=== PATIENT | female | born 1995 | race Caucasian/White ===

== ENCOUNTER 2017-02-06 10:05 | Emergency (ER) | payer BC ==
[2017-02-06 11:14] VITALS: BP 159/86
--- NOTE | 2017-02-06 11:43 | UC ---
Dental HPI - HPI Summary HPI Summary: complaint of dental pain that started approx 1 week ago yesterday at 5PM pain worsened left lower dental and jaw pain noticed an abscess which she draining last night with pressure last week had some bridge work completed -has appt next week took some tylenol 3 without relief didn't finish her augmentin that she was put on for dental work - History of Current Complaint Chief Complaint: UCDentalProblem Stated Complaint: DENTAL PAIN Time Seen by Provider: 02/06/17 11:30 Hx Obtained From: Patient Hx Last Menstrual Period: 01/08/17 - Allergies/Home Medications Allergies/Adverse Reactions: Allergies Allergy/AdvReac Type Severity Reaction Status Date / Time No Known Allergies Allergy Verified 02/06/17 11:13 PMH/Surg Hx/FS Hx/Imm Hx Previously Healthy: Yes Endocrine History Of: Denies: Diabetes, Thyroid Disease Cardiovascular History Of: Denies: Cardiac Disorders, Hypertension Respiratory History Of: Denies: COPD, Asthma GI/ History Of: Denies: Ulcer - Surgical History Surgical History: Yes Surgery Procedure, Year, and Place: CYST ON STERNUM - 2 SURGERIES. DENTAL WORK - Family History Known Family History: Positive: None, Unknown, Hypertension - Social History Occupation: Employed Full-time Lives: With Family Alcohol Use: Rare Substance Use Type: None Smoking Status (MU): Never Smoked Tobacco - Immunization History Most Recent Influenza Vaccination: 2014 Most Recent Tetanus Shot: 10/2015 Review of Systems Constitutional: Negative Skin: Negative Eyes: Negative ENT: Dental Pain Respiratory: Negative Cardiovascular: Negative Gastrointestinal: Negative Genitourinary: Negative Motor: Negative Neurovascular: Negative Musculoskeletal: Negative Neurological: Negative Psychological: Negative All Other Systems Reviewed And Are Negative: Yes Physical Exam Triage Information Reviewed: Yes Appearance: Well-Nourished, Pain Distress, Obese Vital Signs: Initial Vital Signs Temp 99.1 F 02/06/17 11:08 Pulse 69 02/06/17 11:08 Resp 16 02/06/17 11:08 BP 159/86 02/06/17 11:08 Pulse Ox 97 02/06/17 11:08 Vital Signs Reviewed: Yes Eyes: Positive: Conjunctiva Clear ENT: Positive: Pharynx normal, TMs normal Dental: Positive: Dental Fracture @ - 18, gum surrounding tooth edea nad erythema Neck: Positive: No Lymphadenopathy Respiratory: Positive: Lungs clear, Normal breath sounds, No respiratory distress Cardiovascular: Positive: RRR, No Murmur, Pulses Normal Abdomen Description: Positive: Nontender, Soft Bowel Sounds: Positive: Present Musculoskeletal Exam: Normal Neurological Exam: Normal Psychological Exam: Normal Skin Exam: Normal Dental Complaint Course/Dx - Course Course Of Treatment: exam completed. fractured tooth and surrounding gum appears infected. will start clindamycin becuase she stoppe dtaking her prescribes augmentin 2 days ago. limited amount of percocet given until antibiotic starts to fight infection. [facility] acseesed reference # [id number] - Differential Dx/Diagnosis Differential Diagnosis/Dx: Dental Abscess, Fractured Tooth Provider Diagnoses: dental abscess. elevated blood pressure Discharge - Discharge Plan Condition: Stable Disposition: HOME Prescriptions: Clindamycin Cap(NF) [Cleocin 300 mg Cap(NF)] 300 mg PO TID #30 cap oxyCODONE/Acetamin 5/325 MG* [Percocet 5/325 TAB*] 1 tab PO Q4H PRN #12 tab MDD 6 PRN Reason: Pain - Uncontrolled Patient Education Materials: Dental Abscess (ED) Forms: *Work Release Referrals: No Primary Care Phys,NOPCP [Primary Care Provider] - [facility] [facility] [Outside] Additional Instructions: DENTAL ABSCESS What is a Dental Abscess? A dental abscess is an infection around the root of a tooth or in the gums or jawbone. The infection causes pus to collect, and a lump can appear. Dental abscesses often get their start when bacteria invade a decayed tooth; the decay may then travel to the gums or jawbone. Decay can also begin in the mouth when teeth are not brushed or flossed properly. Symptoms Might Include: In general, you'll start to have a fever, redness and swelling of the gums or cheek. If you have a lump it may feel hot. Other signs include tooth or mouth pain, a loose tooth, or not being able to close your mouth all the way. If the abscess spreads, your face, neck, or chest may swell. Treatment Recommendations: Rinse your mouth with warm water every hour or as needed to ease the pain. This will help draw the infection from the abscess. For pain, you may take non-prescription medicines such as acetaminophen ( Tylenol) or ibuprofen (Motrin, Advil). To help ease the pain, do not chew on the sore side for at least 2 days; you may need to limit yourself to a liquid diet. Putting ice on your face over the affected area may also relieve the pain. Apply the ice for 10 to 20 minutes out of every hour. Do not leave the ice on for long periods or you can get frostbite. If the abscess is drained, there may be a small hole or drain. Keep the area free of food by rinsing with water after eating. You'll need to return or be seen by a dentist to have the drain removed. The healthcare provider may have prescribed an antibiotic medicine. The medicine should be taken until it is completely gone, even if you are feeling better. If you stop taking the medicine early, the infection may not be completely gone, and the medication may not work the next time. To prevent abscesses: [place] regularly with a toothbrush recommended by your dentist. Floss daily and use a fluoride mouthwash, toothpaste, tablets, or supplements as instructed by your dentist or dental hygienist. Reduce the amount of sugar in your diet. Call Your Doctor or Return Here IF: You have a high temperature Your pain becomes worse You have any new symptoms or problems that may be due to the medicine you are taking You have new or increased swelling in your face, jaw, cheek, eye, or neck You have any other new symptoms that worry you Your blood pressure is elevated. Please contact your primary care provider within 1 day -4 weeks for further evaluation
== END 2017-02-06 11:50 | disposition home or self-care (01) ==
LOC: UCEAST 10:05
DX: K04.7 Periapical abscess without sinus (principal); R03.0 Elevated blood-pressure reading, without diagnosis of hypertension
CPT/HCPCS: 99212; G0463

== ENCOUNTER 2019-07-03 07:31 | Emergency (ER) | payer BC ==
[2019-07-03 07:45] VITALS: BP 134/81
--- NOTE | 2019-07-03 08:07 | UC ---
Lower Extremity/Ankle HPI - HPI Summary HPI Summary: The patient is a 23-year-old female that twisted her left ankle on wet leaves yesterday. Initially she was able to bear weight painfully but today is unable to bear weight. She has been taking ibuprofen. She denies any prior history of injury to that left ankle or foot. - History of Current Complaint Chief Complaint: UCLowerExtremity Stated Complaint: LT ANKLE INJURY Time Seen by Provider: 07/03/19 07:54 Hx Obtained From: Patient Hx Last Menstrual Period: 06/05/19 Onset/Duration: Sudden Onset, Lasting Hours Severity Initially: Severe Severity Currently: Severe Pain Intensity: 8 Pain Scale Used: 0-10 Numeric Aggravating Factor(s): Standing, Ambulation Alleviating Factor(s): Rest, Elevation, OTC Meds Able to Bear Weight: No Feet (Multiple View): 1 - tender/swollen - Allergies/Home Medications Allergies/Adverse Reactions: Allergies Allergy/AdvReac Type Severity Reaction Status Date / Time No Known Allergies Allergy Verified 07/03/19 07:45 PMH/Surg Hx/FS Hx/Imm Hx Previously Healthy: Yes - Surgical History Surgical History: Yes Surgery Procedure, Year, and Place: CYST ON STERNUM - 2 SURGERIES. DENTAL WORK - Family History Known Family History: Positive: Hypertension - Social History Alcohol Use: Rare Substance Use Type: None Smoking Status (MU): Never Smoked Tobacco - Immunization History Most Recent Influenza Vaccination: 2014 Most Recent Tetanus Shot: 10/2015 Review of Systems All Other Systems Reviewed And Are Negative: Yes Constitutional: Positive: Negative Skin: Positive: Negative Eyes: Positive: Negative ENT: Positive: Negative Respiratory: Positive: Negative Cardiovascular: Positive: Negative Gastrointestinal: Positive: Negative Genitourinary: Positive: Negative Motor: Positive: Negative Neurovascular: Positive: Negative Musculoskeletal: Positive: Arthralgia - left ankle Neurological: Positive: Negative Psychological: Positive: Negative Physical Exam Triage Information Reviewed: Yes Appearance: Well-Appearing, No Pain Distress, Well-Nourished Vital Signs: Initial Vital Signs Temp 98.5 F 07/03/19 07:40 Pulse 105 07/03/19 07:40 Resp 16 10/19/19 07:40 BP 134/81 07/03/19 07:40 Pulse Ox 100 07/03/19 07:40 Vital Signs Reviewed: Yes Eyes: Positive: Conjunctiva Clear ENT: Positive: Hearing grossly normal. Negative: Nasal congestion, Nasal drainage, Trismus, Muffled voice, Hoarse voice Neck: Positive: Supple, Nontender, No Lymphadenopathy Respiratory: Positive: Lungs clear, Normal breath sounds, No respiratory distress, No accessory muscle use Cardiovascular: Positive: RRR, No Murmur Musculoskeletal: Positive: ROM Intact, No Edema Neurological: Positive: Alert Psychological Exam: Normal Skin Exam: Normal Diagnostics - Radiology No standard instances Radiology Interpretation Completed By: Radiologist Summary of Radiographic Findings: Left ankle- lat sts, no fx Lower Extremity Course/Dx - Differential Dx/Diagnosis Provider Diagnosis: Elevated BP without diagnosis of hypertension, Left ankle sprain Discharge ED - Sign-Out/Discharge Documenting (check all that apply): Patient Departure All imaging exams completed and their final reports reviewed: Yes - Discharge Plan Condition: Stable Disposition: HOME Patient Education Materials: R.I.C.E. Treatment (ED), Ankle Sprain (ED) Referrals: Essie Haas MD [Primary Care Provider] - 2 Weeks (recheck BP in 2-12 weeks in pre hypertensive range) [facility] [Outside] - 1 Week (if not better) Additional Instructions: rest elevate ice tylenol or ibuprofen for pain - Billing Disposition and Condition Condition: STABLE Disposition: Home
== END 2019-07-03 08:39 | disposition home or self-care (01) ==
LOC: UCEAST 07:31
DX: S93.402A Sprain of unspecified ligament of left ankle, initial encounter (principal); R03.0 Elevated blood-pressure reading, without diagnosis of hypertension; X50.1XXA Overexertion from prolonged static or awkward postures, initial encounter; Y92.9 Unspecified place or not applicable
CPT/HCPCS: 99213; G0463

== ENCOUNTER 2019-10-18 13:47 | Emergency (ER) | payer BC ==
--- OUTSIDE RECORDS SUMMARY | 2019-10-18 16:43 | XMS REPORT | Continuity of Care Document ---
:1995 External Reference #:[id number] Author Name Stephanie Quintero MD (transmitted by agent of provider Trudi Dove) Address [address] [place] [address], [place] [address] Care Team Providers Name Role Phone Essie Haas M.D. - Family Medicine Care Team Information [employer] [phone] Problems Active Problems Provider Date Abnormal weight gain Maricruz Rider M.D. Onset: 10/20/2015 Adjustment disorder with depressed mood Maricruz Rider M.D. Onset: 10/20/2015 Acute upper respiratory infection Mustapha Mo NP Onset: 12/13/2016 Morbid obesity Dipak Cerna M.D. Onset: 06/11/2017 Social History Type Date Description Comments Sex Unknown ETOH Use Rarely consumes wine Tobacco Use Start: Unknown Patient has never smoked Recreational Drug Use Denies Drug Use Smoking Status Reviewed: 10/08/19 Patient has never smoked Exercise Type/Frequency walks Allergies, Adverse Reactions, Alerts Description No Known Drug Allergies Medications Active Medications SIG Qnty Indications Ordering Provider Date Escitalopram Oxalate 2 by mouth 60tabs F33.1 Stephanie Quintero, 07/09/2019 10mg every day in in Tablets the morning, with food Depo-Provera 150mg Im every 1ml Z30.013 Essie Haas MD 07/09/2019 150mg/ml 12 weeks Suspension History Medications No Active Medications Unknown 07/09/2019 - 07/09/2019 Cephalexin one three times 30tabs N76.4 Eloise Amado, 04/30/2019 - 500mg daily for 10 N.P. 05/10/2019 Tablets days Fluconazole one by mouth 3tabs N76.4 Eloise Amado, 04/30/2019 - 150mg every 3 days N.P. 07/09/2019 Tablets for 3 doses Medications Administered in Office Medication SIG Qnty Indications Ordering Provider Date Depo-Provera Pt Provided Vac Essie Haas MD 07/09/2019 Injection PPD Dipak Cerna M.D. 06/11/2017 Injection Immunizations Description No Information Available Vital Signs Date Vital Result Comment 10/08/2019 9:10am Height 65 inches 5'5" Weight 295.12 lb Heart Rate 87 /min BP Systolic 118 mmHg BP Diastolic 80 mmHg Body Temperature 97.0 F O2 % BldC Oximetry 98 % BMI (Body Mass Index) 49.1 kg/m2 07/09/2019 10:39am Height 65 inches 5'5" Weight 290.00 lb Heart Rate 88 /min BP Systolic Sitting 132 mmHg BP Diastolic Sitting 87 mmHg BMI (Body Mass Index) 48.3 kg/m2 Results Test Acquired Date Facility Test Result H/L Range Note Laboratory test 07/09/2019 [facility] HCG < 0.60 [address] mIU/[place] [address] [phone] TSH (Thyroid Stim Horm) 3.97 mcIU/mL Normal 0.34-5.60 CBC Auto 07/09/2019 [facility] White Blood 9.3 10^3/uL Normal 3.5-10.[address] [place] [address] [phone] Red Blood Count 4.19 10^6/uL Normal 3.70-4.87 Hemoglobin 12.4 g/dL Normal 12.0-16.0 Hematocrit 36 % Normal 35-47 Mean Corpuscular Volume 86 fL Normal 80-97 Mean Corpuscular Hemoglobin 30 pg Normal 27-31 Mean Corpuscular HGB Conc 34 g/dL Normal 31-36 Red Cell Distribution Width 14 % Normal 10-15 Platelet Count 299 10^3/uL Normal 150-450 Mean Platelet Volume 8.4 fL Normal 7.4-10.4 Abs Neutrophils 5.8 10^3/uL Normal 1.5-7.7 Abs Lymphocytes 2.4 10^3/uL Normal 1.0-4.8 Abs Monocytes 0.8 10^3/uL Normal 0-0.8 Abs Eosinophils 0.2 10^3/uL Normal 0-0.6 Abs Basophils 0.0 10^3/uL Normal 0-0.2 Abs Nucleated RBC 0.0 10^3/uL Granulocyte % 62.2 % Lymphocyte % 26.3 % Monocyte % 8.6 % Eosinophil % 2.6 % Basophil % 0.3 % Nucleated Red Blood Cells % 0.0 1 <5.0 Negative 5.0 - 25.0 Indeterminate (Repeat testing recommended after 72 hours) >25.0 Positive Perimenopausal women can display HCG levels of up to 20 mIU/mL Procedures Date Code Description Status 07/09/2019 72281 Admin Of Inj Completed Medical Devices Description No Information Available Encounters Type Date Location Provider Dx Diagnosis Office Visit 07/09/2019 [facility] sEsie Haas MD F33.1 Major [facility], [facility] moderate Z30.013 Encounter for initial prescription of injectable contracep Office Visit 04/30/2019 1:40p [facility] Eloise Amado, N76.4 [facility] vulva Assessments Date Code Description Provider 10/08/2019 F33.1 Major depressive disorder, recurrent, moderate Stephanie Quintero MD 07/09/2019 F33.1 Major depressive disorder, recurrent, moderate Essie Haas MD 07/09/2019 Z30.013 Encounter for initial prescription of Essie Haas MD injectable contraceptive 04/30/2019 N76.4 Abscess of vulva Eloise Amado, N.P. Plan of Treatment Future Appointment(s):01/19/2020 11:00 am - Ess[facility] at [facility] - Stephanie Quintero MDF33.1 Major depressive disorder , recurrent, moderateFollow up:[address] Haas Functional Status Description No Information Available Mental Status Description No Information Available Referrals Description No Information Available
[2019-10-18 16:48] VITALS: BP 146/86
--- NOTE | 2019-10-18 17:28 | UC ---
FLU HPI - HPI Summary HPI Summary: Patient is a 24yo female presenting with request for influenza testing. Notes sore throat, nausea, and fatigue that began today. Denies current nausea. Denies vomiting, diarrhea, and abd pain. Normal appetite and fluid intake. Denies fever and chills. Denies body aches. 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 - History of Current Complaint Chief Complaint: UCRespiratory Stated Complaint: TEST FOR FLU Hx Obtained From: Patient Hx Last Menstrual Period: control Pain Intensity: 2 Pain Scale Used: 0-10 Numeric - Allergy/Home Medications Allergies/Adverse Reactions: Allergies Allergy/AdvReac Type Severity Reaction Status Date / Time No Known Allergies Allergy Verified 10/18/19 16:47 Home Medications: Home Medications Calcium Carbonate [Calcium] 500 mg PO DAILY 10/18/19 [History Confirmed 10/18/19 ] Escitalopram Oxalate [Lexapro 10 mg] 20 mg PO DAILY 10/18/19 [History Confirmed 10/18/19] PMH/Surg Hx/FS Hx/Imm Hx - Surgical History Surgical History: Yes Surgery Procedure, Year, and Place: CYST ON STERNUM - 2 SURGERIES. DENTAL WORK - Family History Known Family History: Positive: Hypertension - Social History Alcohol Use: Rare Substance Use Type: None Smoking Status (MU): Never Smoked Tobacco - Immunization History Most Recent Influenza Vaccination: 2014 Most Recent Tetanus Shot: 10/2015 Review of Systems All Other Systems Reviewed And Are Negative: Yes Constitutional: Positive: Negative ENT: Positive: Sore Throat. Negative: Sinus Congestion Respiratory: Positive: Negative Cardiovascular: Positive: Negative Gastrointestinal: Positive: Nausea - earlier today. Negative: Abdominal Pain, Vomiting Musculoskeletal: Positive: Negative Neurological: Positive: Negative Physical Exam - Summary Physical Exam Summary: Vital Signs Reviewed: Yes A+Ox3, no distress, well-appearing Eyes: Conjunctiva Clear ENT: Hearing grossly normal TM x 2 clear, moist, uvula midline, no exudate, + pharyngeal erythema Neck: Positive: Supple Respiratory: Positive: No respiratory distress, No accessory muscle use + CTA throughout no w/r Cardiovascular: RRR nl s1, s2 no m/r Musculoskeletal Exam: CHOPRA x 4 without difficulty Neurological: Positive: Alert Psychological: Positive: age appropriate behavior Skin: Positive: no rash, no ecchymosis Vital Signs: Initial Vital Signs Temp 98.7 F 10/18/19 16:40 Pulse 93 10/18/19 16:40 Resp 14 10/18/19 16:40 BP 146/86 10/18/19 16:40 Pulse Ox 100 10/18/19 16:40 Lab Results 10/18/19 Range/Units 17:25 Influenza A (Rapid) Negative (Negative) Influenza B (Rapid) Negative (Negative) Flu Course/Dx - Course Course Of Treatment: Rapid flu negative. Patient declined strep testing. Educated on viral illness and symptomatic treatment. Instructed to follow up with pcp or [facility] if symptoms worsen or persist. Patient voiced understanding and agreed with treatment plan. - Differential Dx/Diagnosis Differential Diagnosis/HQI/PQRI: Influenza, Upper Respiratory Infection Provider Diagnosis: Pharyngitis Discharge ED - Sign-Out/Discharge Documenting (check all that apply): Patient Departure All imaging exams completed and their final reports reviewed: No Studies - Discharge Plan Condition: Stable Disposition: HOME Patient Education Materials: Pharyngitis (ED) Forms: *Work Release Referrals: Essie Haas MD [Primary Care Provider] - If Needed Additional Instructions: You tested negative for the flu today. You may take ibuprofen and/or tylenol for pain relief. Throat sprays, lozenges, and tea with honey may help relieve sore throat. Follow up with your primary care provider or the [facility] if symptoms worsen or do not resolve within 7 days. - Billing Disposition and Condition Condition: STABLE Disposition: Home
[2019-10-18 17:36] LABS: Influenza A Molecular Negative (Negative); Influenza B Molecular Negative (Negative)
== END 2019-10-18 17:57 | disposition home or self-care (01) ==
LOC: UCEAST 13:47
DX: J02.9 Acute pharyngitis, unspecified (principal)
CPT/HCPCS: 99211; G0463